=== PATIENT | female | born 1970 | race Caucasian/White ===

== ENCOUNTER 2017-01-25 21:10 | Emergency (ER) | payer BC ==
[~2017-01-25] VITALS: Ht 162.6 cm; Wt 100.0 kg
[~2017-01-25 21:10] MED LIST: BACTRIM,SEPT1 TABLET PO; NORCO 5/3251 TABLET PO; VENTOLIN HFA18 GM IH
[2017-01-25 22:19] LABS: HEMATOCRIT 41.8 % (36.0-46.0); MCH 30.3 PG (29.0-34.0); MCV 89.1 FL (83-99); PLATELET COUNT 230 K/uL (156-360); RBC DIS.WIDTH-CV 12.2 % (11.8-14.6); RBC DIS.WIDTH-SD 39.4 % (39-53); RED BLOOD COUNT 4.69 M/uL (3.80-5.20); WHITE BLOOD COUNT 8.3 K/uL (4.1-10.2)
[2017-01-25 22:28] LABS: CHLORIDE 109 mEq/L (99-109); POTASSIUM 3.7 mEq/L (3.7-5.4); SODIUM 142 mEq/L (136-147)
[2017-01-25 22:30] LABS: D-DIMER ELISA 0.63 mg/L FEU (< 0.57)
[2017-01-25 22:30] LABS: GLUCOSE 101 mg/dL (70-99)
[2017-01-25 22:31] LABS: ANION GAP 11 MEQ/L (2-14)
[2017-01-25 22:32] LABS: TOTAL BILIRUBIN 0.4 mg/dL (0.0-1.0)
[2017-01-25 22:33] LABS: ALKALINE PHOSPHATASE 85 IU/L (3-129)
[2017-01-25 22:34] LABS: GFR ESTIMATE (CALCULATED) > 59 mL/min/
[2017-01-25 22:35] LABS: UREA NITROGEN (BUN) 12 mg/dL (9-23)
[2017-01-25 22:37] LABS: LIPASE 30 U/L (1.0-51.0)
[2017-01-25 22:43] LABS: QUANTITATIVE HCG < 4.0 MIU/ML
[2017-01-26 00:09] VITALS: BP 151/115
== END 2017-01-26 00:10 | disposition home or self-care (01) ==
LOC: EME 21:10 → EXP 21:10
PROVIDERS: Physician Assistant
DX: R51 Headache (principal); I10 Essential (primary) hypertension; R20.2 Paresthesia of skin; M79.662 Pain in left lower leg; R07.9 Chest pain, unspecified; R03.0 Elevated blood-pressure reading, without diagnosis of hypertension; R11.0 Nausea; F17.200 Nicotine dependence, unspecified, uncomplicated
CPT/HCPCS: 70450; 71020; 80053; 83690; 84702; 85027; 85379; 93005; 93971; 99281; 99283

== ENCOUNTER 2017-12-10 05:31 | Day surgery (SDC) | payer BC ==
[~2017-12-10] VITALS: Ht 162.6 cm; Wt 83.9 kg
[~2017-12-10 05:31] MED LIST changes: +COMBIVENT RESPIM4 GM IH; +MOTRIN800 MG PO; +XANAX0.5 MG PO
[2017-12-10 06:06] VITALS: BP 141/84
[2017-12-10 09:45] VITALS: BP 144/75
[2017-12-10 10:39] VITALS: BP 159/85
== END 2017-12-10 10:50 | disposition home or self-care (01) ==
LOC: SDC 05:31
PROC: 0UT04ZZ Resection of Right Ovary, Percutaneous Endoscopic Approach (ICD-10-PCS; principal; 2017-12-10)
DX: D27.0 Benign neoplasm of right ovary (principal); J45.909 Unspecified asthma, uncomplicated; G40.909 Epilepsy, unspecified, not intractable, without status epilepticus; F41.8 Other specified anxiety disorders; F17.210 Nicotine dependence, cigarettes, uncomplicated
CPT/HCPCS: 88307; J0690; J1100; J1170; J1885; J2405; J2710; J3010; J7643; S0020